=== PATIENT | male | born 1965 | race Caucasian/White ===

== ENCOUNTER 2020-12-08 16:05 | Inpatient (IN) | payer MEDICARE, MEDICAID ==
[~2020-12-08] VITALS: Ht 177.8 cm; Wt 97.1 kg
[2020-12-08 17:22] LABS: HEMOGLOBIN 16.3 gm/dl (14.0-17.5); RED BLOOD COUNT 5.26 M/UL (4.20-5.50); WHITE BLOOD COUNT 4.4 K/UL (4.5-11.0)
[2020-12-08 17:47] LABS: BUN/CREATININE RATIO 18 (0-10)
[2020-12-09 03:05] LABS: RED BLOOD COUNT 4.85 M/UL (4.20-5.50); WHITE BLOOD COUNT 3.3 K/UL (4.5-11.0)
[2020-12-09] MEDS ORDERED: BUMETANIDE1 MG PO (11:22)
[2020-12-09] MEDS ORDERED: LOPRESSOR 25 MG25 MG PO (11:23)
[2020-12-09] MEDS ORDERED: ZOLOFT50 MG PO (11:23)
[2020-12-09] MEDS ORDERED: SYNTHROID150 MCG PO (11:23)
[2020-12-09] MEDS ORDERED: CIALIS20 MG PO (11:24)
[2020-12-09] MEDS ORDERED: B COMPLEX1 EACH PO (11:48)
[2020-12-10 06:45] LABS: HEMOGLOBIN 14.6 gm/dl (14.0-17.5); RED BLOOD COUNT 4.81 M/UL (4.20-5.50)
[2020-12-10 06:50] LABS: WHITE BLOOD COUNT 5.1 K/UL (4.5-11.0)
[2020-12-10 07:36] LABS: BUN/CREATININE RATIO 27 (0-10)
--- NOTE | 2020-12-10 09:15 | NUR ---
RN CALLED DR. JESUS TO REQUEST REMOVAL OF CONTINUOUS TELEMETRY AND PULSE OX. RN INFORMED MD THAT PATIENT WAS ON ROOM AIR MAINTAINING AN OXYGEN SATURATION OF 90-93%. MD TOLD RN TO ALLOW PATIENT TO SHOWER THEN REAPPLY TELEMETRY AND PULSE OX.
[2020-12-12 07:32] LABS: HEMOGLOBIN 14.9 gm/dl (14.0-17.5); RED BLOOD COUNT 4.88 M/UL (4.20-5.50); WHITE BLOOD COUNT 6.2 K/UL (4.5-11.0)
[2020-12-12 07:50] LABS: BUN/CREATININE RATIO 27 (0-10)
[2020-12-12] MEDS ORDERED: ASPIRIN EC81 MG PO (10:48)
[2020-12-12] MEDS ORDERED: VENTOLIN HFA 66.7 GM INH (10:48)
[2020-12-12] MEDS ORDERED: DECADRON6 MG PO (10:48)
== END 2020-12-12 16:25 | disposition home or self-care (01) | DRG 871 ==
LOC: ER1 16:05 → MED SURG 4 18:54 → CDU 18:54 → MED SURG 4 12-09 21:44
PROVIDERS: Family Medicine; Internal Medicine Infectious Disease; ADMIT Internal Medicine
PROC: XW033E5 Introduction of Remdesivir Anti-infective into Peripheral Vein, Percutaneous Approach, New Technology Group 5 (ICD-10-PCS; principal; 2020-12-08)
PROC: 3E0333Z Introduction of Anti-inflammatory into Peripheral Vein, Percutaneous Approach (ICD-10-PCS; 2020-12-08)
PROC: 8E0ZXY6 Isolation (ICD-10-PCS; 2020-12-09)
DX: A41.89 Other specified sepsis (principal); U07.1 COVID-19; J12.82 Pneumonia due to coronavirus disease 2019; J96.01 Acute respiratory failure with hypoxia; N17.9 Acute kidney failure, unspecified; E87.2 Acidosis; E03.9 Hypothyroidism, unspecified; I12.9 Hypertensive chronic kidney disease with stage 1 through stage 4 chronic kidney disease, or unspecified chronic kidney disease; M10.9 Gout, unspecified; N18.30 Chronic kidney disease, stage 3 unspecified; E87.6 Hypokalemia; Z79.82 Long term (current) use of aspirin; Z82.49 Family history of ischemic heart disease and other diseases of the circulatory system
CPT/HCPCS: 36415; 36600; 71045; 80048; 80053; 82550; 82553; 82803; 83605; 83735; 83874; 84439; 84443; 84484; 85025; 85379; 85652; 86140; 93005; 94640; 94664; 94760; 96374; 99285; J0692; J1100; J1644; J7030; U0002